=== PATIENT | male | born 1975 | race Caucasian/White ===

== ENCOUNTER 2020-11-16 12:41 | Emergency (ER) | payer BC ==
--- NOTE | 2020-11-16 12:45 | EDM.PDOC ---
ED HPI GENERAL MEDICAL PROBLEM - General Stated Complaint: LEFT BUTTOX PAIN, LEFT LEG LIMP Time Seen by Provider: 11/16/20 12:43 Source of Information: Reports: Patient History Limitations: Reports: No Limitations - History of Present Illness INITIAL COMMENTS - FREE TEXT/NARRATIVE: HISTORY AND PHYSICAL: History of present illness: Patient is a 45-year-old male who presents emergency room today with concern of advice on how to get some chronic issues that he has figured out and how to be seen to start the process of fixing some chronic issues he has. Patient states that he works Tuesday through Tuesday and works 12-hour long shifts so does not come here during the week and cannot come here due to work. Patient states that he just got health insurance so he was wanting to be seen to work on some of his chronic issues that he has. Patient states that since he happened to have today off, he thought he would just come to the hospital and see where he could potentially see a provider. Patient states that he is hoping to see Dr. Duarte this is his primary care provider who has been helping him with some carpal tunnel concerns. Patient states that he was wondering if we could get a hold of Dr. Duarte in order for him to come see patient today. Patient states that he does not have any emergencies today and did not necessarily think he needed to be assessed in the ER but today is Tuesday and the ER is the "only thing that was open today." Patient states that he does not have a specific complaint that he would like me to evaluate today. Patient denies fever, chills, chest pain, shortness of breath, or cough. Denies headache, neck stiff ness, change in vision, syncope, or near syncope. Denies nausea, vomiting, abdominal pain, diarrhea, constipation, or dysuria. Has not noted any blood in urine or stool. Patient has been eating and drinking appropriately. Review of systems: As per history of present illness and below otherwise all systems reviewed and negative. Past medical history: As per history of present illness and as reviewed below otherwise noncontributory. Surgical history: As per history of present illness and as reviewed below otherwise noncontributory. Social history: See social history for further information Family history: As per history of present illness and as reviewed below otherwise noncontributory. Physical exam: General: Patient is alert, oriented, and in no acute distress. Patient sitting comfortably on exam table. HEENT: Atraumatic, normocephalic, pupils equal and reactive bilaterally, negative for conjunctival pallor or scleral icterus, mucous membranes moist, TMs normal bilaterally, throat clear, neck supple, nontender, trachea midline. No drooling or trismus noted. No meningeal signs. No hot potato voice noted. Lungs: Clear to auscultation, breath sounds equal bilaterally, chest nontender. Heart: S1S2, regular rate and rhythm without overt murmur Abdomen: Soft, nondistended, nontender. Negative for masses or hepatosplen omegaly. Negative for costovertebral tenderness. Pelvis: Stable nontender. Genitourinary: Deferred. Rectal: Deferred. Skin: Intact, warm, dry. No lesions or rashes noted. Extremities: Atraumatic, negative for cords or calf pain. Neurovascular unremarkable. Neuro: Awake, alert, oriented. Cranial nerves II through XII unremarkable. Cerebellum unremarkable. Motor and sensory unremarkable throughout. Exam nonfocal. Notes: Discussed importance of follow-up with a primary care provider. Voices understanding and is agreeable to plan of care. Denies any further questions or concerns at this time. Diagnostics: None Therapeutics: None Prescription: None Impression: Medical screening exam Plan: Follow up with your primary care provider as discussed. Return to the ED as needed and as discussed. Definitive disposition and diagnosis as appropriate pending reevaluation and review of above. Left bofy Pain Score (Numeric/FACES): 7 - Related Data Allergies Allergy/AdvReac Type Severity Reaction Status Date / Time No Known Allergies Allergy Verified 11/16/20 13:12 Home Meds: Home Meds . [No Known Home Meds] 11/16/20 [History] ED ROS GENERAL - Review of Systems Review Of Systems: Comprehensive ROS is negative, except as noted in HPI. ED EXAM, GENERAL - Physical Exam Exam: See Below (See dictation) Course - Vital Signs Last Recorded V/S: Last Vital Signs Temp 98.0 F 11/16/20 13:13 Pulse 91 11/16/20 13:13 Resp 17 11/16/20 13:13 BP 126/90 11/16/20 13:13 Pulse Ox 97 11/16/20 13:13 Departure - Departure Time of Disposition: 13:11 Disposition: Home, Self-Care 01 Clinical Impression: Encounter for medical screening examination - Discharge Information Instructions: Medical Screening Exam Referrals: Gregor Duarte MD [Primary Care Provider] - Forms: ED Department Discharge Additional Instructions: The following information is given to patients seen in the emergency department who are being discharged to home. This information is to outline your options for follow-up care. We provide all patients seen in our emergency department with a follow-up referral. The need for follow-up, as well as the timing and circumstances, are variable depending upon the specifics of your emergency department visit. If you don't have a primary care physician on staff, we will provide you with a referral. We always advise you to contact your personal physician following an emergency department visit to inform them of the circumstance of the visit and for follow-up with them and/or the need for any referrals to a consulting specialist. The emergency department will also refer you to a specialist when appropriate. This referral assures that you have the opportunity for follow-up care with a specialist. All of these measure are taken in an effort to provide you with optimal care, which includes your follow-up. Under all circumstances we always encourage you to contact your private physician who remains a resource for coordinating your care. When calling for follow-up care, please make the office aware that this follow-up is from your recent emergency room visit. If for any reason you are refused follow-up, please contact the [facility] Emergency Department at and asked to speak to the emergency department charge nurse. [facility] [address] [place] [id number] [facility] [address] [place] [id number] Follow up with your primary care provider as discussed. Return to the ED as needed and as discussed. Sepsis Event Note (ED) - Focused Exam Vital Signs: Vital Signs Temp Pulse Resp BP Pulse Ox 11/16/20 13:13 98.0 F 91 17 126/90 97
== END 2020-11-16 13:22 | disposition home or self-care (01) ==
LOC: MW.ED 12:41
DX: Z13.9 Encounter for screening, unspecified (principal)
CPT/HCPCS: 99282; 99283

== ENCOUNTER 2021-03-31 21:57 | Emergency (ER) | payer BC, OTHER, SELFPAY ==
[2021-03-31] MEDS ORDERED: Sodium Chloride 0.9% 10 ML Syringe FLUSH PRN (21:58)
[2021-03-31] MEDS ORDERED: Sodium Chloride 0.9% 2.5 ML Syringe FLUSH PRN (21:58)
[2021-03-31] MEDS ORDERED: Propofol 200 MG/20 ML SDV IVPUSH ONE ×3 (21:59→22:42)
[2021-03-31] MEDS ORDERED: Furosemide 40 MG/4 ML VIAL ONE (22:08)
[2021-03-31] MEDS ORDERED: Furosemide 40 MG/4 ML VIAL IVPUSH ONE (22:08)
--- NOTE | 2021-03-31 22:16 | EDM.PDOC ---
ED HPI GENERAL MEDICAL PROBLEM - General Chief Complaint: Respiratory Problem Stated Complaint: OVERDOSE Time Seen by Provider: 03/31/21 21:58 - History of Present Illness INITIAL COMMENTS - FREE TEXT/NARRATIVE: 46yoM presents s/p cardiac arrest with suspected OD. Unknown down time. PD arrived with patient in arrest, they gave 8 of IN narcan and started CPR. On EMS arrival patient was still without palpable pulse they obtained IV access continued CPR and gave 8 of IV Narcan and when pads were applied patient was noted to be in sinus tach. Patient then became acutely severely combative and agitated he was intubated in the field with etomidate and rocuronium. Patient arrives unresponsive and intubated. - Related Data Allergies Allergy/AdvReac Type Severity Reaction Status Date / Time No Known Allergies Allergy Verified 11/16/20 13:12 Home Meds: Home Meds . [No Known Home Meds] 11/16/20 [History] Past Medical History - Infectious Disease History Infectious Disease History: Reports: Hepatitis C Other Infectious Disease History: untreated Social & Family History - Caffeine Use Caffeine Use: Reports: None ED ROS GENERAL - Review of Systems Review Of Systems: Unable To Obtain Reason Not Obtained: Intubated ED EXAM, GENERAL - Physical Exam Exam: See Below Free Text/Narrative:: General Appearance: Diaphoretic Skin: No rash HEENT: Normocephalic/atraumatic, sclera anicteric, mucous membranes moist, ET tube in the mouth [employer] airway in the left nares Neck: Normal range of motion Chest and Lungs: Coarse breath sounds diffusely and bilaterally with bagging Cardiovascular: Tachycardic rate regular rhythm intact distal perfusion Abdomen: Soft, non-tender Back: Normal Musculoskeletal: No edema or tenderness Neurologic: Unresponsive pupils fixed likely related to rocuronium use #1 Interpretation EKG Date: 03/31/21 Time: 22:23 EKG Interpretation Comments: Sinus tach rate of 152 very minimal depression inferiorly but no STEMI criteria. T wave somewhat peaked anteriorly. Course - Vital Signs Last Recorded V/S: Last Vital Signs Temp 97.2 F 03/31/21 22:08 Pulse 84 03/31/21 22:08 Resp 18 03/31/21 22:08 BP 137/78 03/31/21 22:08 Pulse Ox 98 03/31/21 22:08 - Orders/Labs/Meds Orders: Active Orders 24 hr Category Date Time Status EKG Documentation Completion [RC] AM Care 03/31/21 21:58 Active Chest 1V Frontal [CR] Stat Exams 03/31/21 22:00 Ordered Chest 1V Frontal [CR] Stat Exams 03/31/21 22:16 Ordered ACETAMINOPHEN [CHEM] Stat Lab 03/31/21 22:03 Received COMPREHENSIVE METABOLIC PN,CMP [CHEM] Stat Lab 03/31/21 22:03 Received ETHANOL BLOOD MEDICAL [CHEM] Stat Lab 03/31/21 22:03 Received MAGNESIUM [CHEM] Stat Lab 03/31/21 22:03 Received SALICYLATE [CHEM] Stat Lab 03/31/21 22:03 Received TROPONIN I [CHEM] Stat Lab 03/31/21 22:03 Received Sodium Chloride 0.9% [Saline Flush] Med 03/31/21 21:58 Active 10 ml FLUSH ASDIRECTED PRN Sodium Chloride 0.9% [Saline Flush] Med 03/31/21 21:58 Active 2.5 ml FLUSH ASDIRECTED PRN Saline Lock Insert [OM.PC] Stat Oth 03/31/21 21:58 Ordered Medication Orders Sodium Chloride (Sodium Chloride 0.9% 10 Ml Syringe) 10 ml FLUSH ASDIRECTED PRN PRN Reason: Keep Vein Open Sodium Chloride (Sodium Chloride 0.9% 2.5 Ml Syringe) 2.5 ml FLUSH ASDIRECTED PRN PRN Reason: Keep Vein Open Labs: Laboratory Tests 03/31/21 03/31/21 Range/Units 22:03 22:03 WBC 15.92 H (4.0-11.0) K/uL RBC 4.93 (4.50-5.90) M/uL Hgb 16.4 (13.0-17.0) g/dL Hct 44.7 (38.0-50.0) % MCV 90.7 (80.0-98.0) fL MCH 33.3 H (27.0-32.0) pg MCHC 36.7 (31.0-37.0) g/dL RDW Std Deviation 40.8 (28.0-62.0) fl RDW Coeff of Carlos Eduardo 12 (11.0-15.0) % Plt Count 303 (150-400) K/uL MPV 9.10 (7.40-12.00) fL Neut % (Auto) 37.6 L (48.0-80.0) % Lymph % (Auto) 50.8 H (16.0-40.0) % Dawes % (Auto) 9.2 (0.0-15.0) % Eos % (Auto) 1.6 (0.0-7.0) % Baso % (Auto) 0.8 (0.0-1.5) % Neut # (Auto) 6.0 H (1.4-5.7) K/uL Lymph # (Auto) 8.1 H (0.6-2.4) K/uL Dawes # (Auto) 1.5 H (0.0-0.8) K/uL Eos # (Auto) 0.3 (0.0-0.7) K/uL Baso # (Auto) 0.1 (0.0-0.1) K/uL Nucleated RBC % 0.0 /100WBC Nucleated RBCs # 0 K/uL Lactate 6.7 H* (0.20-2.00) mmol/L Meds: Medications Generic Name Dose Route Start Last Admin Trade Name Freq PRN Reason Stop Dose Admin Sodium Chloride 10 ml 03/31/21 21:58 Sodium Chloride 0.9% 10 Ml Syringe FLUSH ASDIRECTED PRN Keep Vein Open Sodium Chloride 2.5 ml 03/31/21 21:58 Sodium Chloride 0.9% 2.5 Ml Syringe FLUSH ASDIRECTED PRN Keep Vein Open Discontinued Medications Generic Name Dose Route Start Last Admin Trade Name Freq PRN Reason Stop Dose Admin Furosemide 80 mg 03/31/21 22:08 Furosemide 40 Mg/4 Ml Vial IVPUSH 03/31/21 22:09 NOW ONE Furosemide Confirm 03/31/21 22:08 Furosemide 40 Mg/4 Ml Vial Administered 03/31/21 22:09 Dose 80 mg .ROUTE .STK-MED ONE Propofol 60 mg 03/31/21 21:59 Propofol 200 Mg/20 Ml Sdv IVPUSH 03/31/21 22:00 ONETIME ONE Departure - Departure Time of Disposition: 22:22 Disposition: DC/Tfer to Acute Hospital 02 Condition: Serious Clinical Impression: Cardiac arrest, Overdose - Discharge Information Forms: ED Department Discharge Critical Care Note - Critical Care Note Total Time (mins): 45 (.) Comments: Patient presented status post cardiac arrest he required extensive time at the bedside complex decision making assessment adjustment of ET tube and complex medical care. Sepsis Event Note (ED) - Focused Exam Vital Signs: Vital Signs Temp Pulse Resp BP Pulse Ox 03/31/21 22:08 97.2 F 84 18 137/78 98 - My Orders Last 24 Hours: My Active Orders 03/31/21 21:58 EKG Documentation Completion [RC] AM Sodium Chloride 0.9% [Saline Flush] 10 ml FLUSH ASDIRECTED PRN Sodium Chloride 0.9% [Saline Flush] 2.5 ml FLUSH ASDIRECTED PRN Saline Lock Insert [OM.PC] Stat 03/31/21 22:00 Chest 1V Frontal [CR] Stat 03/31/21 22:03 ACETAMINOPHEN [CHEM] Stat COMPREHENSIVE METABOLIC PN,CMP [CHEM] Stat ETHANOL BLOOD MEDICAL [CHEM] Stat MAGNESIUM [CHEM] Stat SALICYLATE [CHEM] Stat TROPONIN I [CHEM] Stat 03/31/21 22:16 Chest 1V Frontal [CR] Stat - Assessment/Plan Last 24 Hours: My Active Orders 03/31/21 21:58 EKG Documentation Completion [RC] AM Sodium Chloride 0.9% [Saline Flush] 10 ml FLUSH ASDIRECTED PRN Sodium Chloride 0.9% [Saline Flush] 2.5 ml FLUSH ASDIRECTED PRN Saline Lock Insert [OM.PC] Stat 03/31/21 22:00 Chest 1V Frontal [CR] Stat 03/31/21 22:03 ACETAMINOPHEN [CHEM] Stat COMPREHENSIVE METABOLIC PN,CMP [CHEM] Stat ETHANOL BLOOD MEDICAL [CHEM] Stat MAGNESIUM [CHEM] Stat SALICYLATE [CHEM] Stat TROPONIN I [CHEM] Stat 03/31/21 22:16 Chest 1V Frontal [CR] Stat Assessment:: 46-year-old male presenting status post cardiac arrest. Likely from narcotic overdose. Patient was initially hypoxic on arrival I suspect this was related to the EMS gas tank running out just prior to getting him on the monitor. Patient was hooked up to wall oxygen head of bed was elevated and oxygen improved. Now after 80 of Lasix which was given for signs of noncardiogenic pulmonary edema on the chest x-ray patient is satting in the upper 90s. Patient was initially severely tachycardic and hypertensive this improved with bolus of propofol and propofol drip. Patient's ET tube was felt to be somewhat high initially though he had good bilateral breath sounds throughout his time in the emergency department. This was adjusted and repeat chest x-rays confirmed good tube placement Su was placed OG was placed. Patient was discussed with Dr. Smith at [facility] in [place] and patient was accepted for transfer patient will be flown there. At time of departure from the ED VS were stable. Labs were obtained but remain pending.
[2021-03-31 22:33] LABS: ACETAMINOPHEN <2.0 ug/mL; BLOOD UREA NITROGEN,BUN 28 mg/dL (7.0-18.0); CHLORIDE,CL 104 mmol/L (98-107); GLUCOSE RANDOM 212 mg/dL (74-106); POTASSIUM,K 3.5 mmol/L (3.5-5.1); SODIUM,NA 142 mmol/L (136-148)
[2021-03-31] MEDS ORDERED: propofoL 100 ML IV SCH (22:45)
--- NOTE | 2021-03-31 23:18 | CR ---
INDICATION: Post intubation status post arrest, ET tube adjustment TECHNIQUE: Chest radiograph 1 view COMPARISON: 03/30/2021 FINDINGS: Mediastinum: The mediastinum is normal in appearance. The heart silhouette is normal in size and morphology. The endotracheal tube tip is positioned 4.7 cm from the sai. NG tube present with the tip in the gastric body. Lung: Mild to moderate diffuse airspace infiltrates are present bilaterally. No pneumothorax is identified. Bone and Soft tissue: Unremarkable for age. IMPRESSION: 1. Mild to moderate diffuse airspace infiltrates are present bilaterally. Findings may be due to pulmonary edema, pneumonia, or aspiration. Dictated by Conrad Ly MD @ 03/31/2021 11:17:34 PM Dictated by: Conrad Ly MD @ 03/31/2021 23:17:38 (Electronically Signed)
--- NOTE | 2021-03-31 23:18 | CR ---
INDICATION: Post intubation status post arrest TECHNIQUE: Chest radiograph 1 view COMPARISON: 03/31/2021 FINDINGS: Mediastinum: The mediastinum is normal in appearance. The heart silhouette is normal in size and morphology. The endotracheal tube tip is positioned 5.7 cm from the sai. NG tube noted in the gastric body. Lung: Diffuse bilateral airspace infiltrates are present without interval change. The apices are partially excluded. No pneumothorax is identified. Bone and Soft tissue: Unremarkable for age. IMPRESSION: 1. There has been no significant interval changes. Dictated by Conrad Ly MD @ 03/31/2021 11:16:46 PM Dictated by: Conrad Ly MD @ 03/31/2021 23:16:47 (Electronically Signed)
== END 2021-03-31 23:09 ==
LOC: MW.ED 21:57
DX: T50.901A Poisoning by unspecified drugs, medicaments and biological substances, accidental (unintentional), initial encounter (principal); I46.9 Cardiac arrest, cause unspecified
CPT/HCPCS: 31500; 36415; 51702; 71045; 80053; 80143; 80179; 80305; 80307; 83605; 83735; 84484; 85025; 93005; 94002; 96374; 99285; J1940; J2704; 93010